=== PATIENT | male | born 1975 | race Caucasian/White ===

== ENCOUNTER 2018-10-20 22:07 | Emergency (ER) | payer OTHER ==
[2018-10-20 22:37] VITALS: PULSE 80
[2018-10-20 23:18] LABS: BASOPHIL % 1.1 % (0.0-0.4); Basophil (Absolute #) 0.09 (0-0.4); Eosinophil % 4.8 % (0.00-5.0); Eosinophil (Absolute #) 0.41 (0-0.5); Granulocyte Absolute (ANC) 4.23 (1.4-6.9); Granulocytes % 49.4 % (36.0-66.0); Hematocrit 48.1 % (42-50); Hemoglobin 16.9 gm/dl (12.5-18.0); Lymphocyte (Absolute #) 2.58 (1.0-4.6); Lymphocytes % 30.2 % (24.0-44.0); Mean Cell Volume 87.6 fl (78-100); Mean Corpuscular Hemoglobin 30.8 pg (26-32); Mean Corpuscular Hgb Concent. 35.1 g/dl (32-36); Mean Platelet Volume 10.7 fl (6-9.5); Monocyte (Absolute #) 1.24 (0.0-1.3); Monocytes % 14.5 % (0.0-12.0); Platelet Count 176 K/mm3 (150-450); Red Blood Count 5.49 M/mm3 (4.1-5.6); Red Cell Distribution Width 13.2 % (11.5-14.0); White Blood Count 8.6 K/mm3 (4.0-10.5)
[2018-10-20 23:35] LABS: ALBUMIN 4.3 g/dL (3.5-5.0); ALKALINE PHOSPHATASE 42 U/L (38-126); ANION GAP 15.8 MEQ/L (5-15); BLOOD UREA NITROGEN 15 mg/dL (9-20); CHLORIDE 106 mmol/L (98-107); Calcium 9.4 mg/dL (8.4-10.2); Carbon Dioxide 24 mmol/L (22-30); Creatinine 1 1.01 mg/dL (0.66-1.25); Glucose 90 mg/dL (74-106); Potassium 3.9 mmol/L (3.5-5.1); SGOT/AST 24 U/L (17-59); SGPT/ALT 27 U/L (0-50); SODIUM 142 mmol/L (137-145); Total Protein 7.3 g/dL (6.3-8.2)
[2018-10-21 01:27] VITALS: BP 101/71; O2SAT 94
[2018-10-21] MEDS ORDERED: ELIQUIS 2.5 MG TABLET PO STA (01:37)
--- NOTE | 2018-10-21 02:05 | ERPHSYRPT ---
- History of Present Illness Source: patient Exam Limitations: no limitations Patient Subjective Stated Complaint: mahesh states he was diagnosed by doppler on 09/14/18 with DVT then they put him on xarelto 30 mg 21 days then lowered to 20mg 2 weeks ago and it has since then started throbbing again liek it did when he first got it, he is also having some oni pain today Triage Nursing Assessment: mahesh alert nad orietnedx3, able to ambulate with crutches, skin warm dry and intact, left foot in extremely red and swollen as compared to right foot, pedal pulse present in right foot Physician History: Pt is a 42 y/o male that presented to the ER with complains of Left leg numbness and throbing, like he had when he was diagnosed with DVT in this leg. Pt was on Xarelto 30mg daily, and he was changed to 20mg daily, and developed escalation of his symptoms and chest pain. Pt denies SOB or cough. No N/V/D or abdominal pain. Method of Injury: other (During work) Occurred: yesterday Quality: throbbing Severity of Pain-Max: moderate Severity of Pain-Current: mild Lower Extremities Pain: leg: left (pain at the left calf and posterior knee.) Modifying Factors: Improves With: nothing Allergies/Adverse Reactions: No Known Drug Allergies Allergy (Unverified 05/24/14 13:33) Home Medications: No Home Meds [No Home Meds] 1 [facility] UD 11/23/13 [History] Hx Tetanus, Diphtheria Vaccination/Date Given: Yes Hx Influenza Vaccination/Date Given: No Hx Pneumococcal Vaccination/Date Given: No Immunizations Up to Date: Yes - Review of Systems Constitutional: No Fever, No Chills Eyes: No Symptoms Ears, Nose, & Throat: No Symptoms Respiratory: No Cough, No Dyspnea Cardiac: Chest Pain Abdominal/Gastrointestinal: No Abdominal Pain, No Nausea, No Vomiting, No Diarrhea Genitourinary Symptoms: No Dysuria Musculoskeletal: Joint Swelling (left ankle, and pain in the left calf ) Neurological: No Dizziness, No Focal Weakness, No Sensory Changes Psychological: No Symptoms Endocrine: No Symptoms - Past Medical History Pertinent Past Medical History: Yes Neurological History: Migraines ENT History: No Pertinent History Cardiac History: No Pertinent History Respiratory History: Asthma Endocrine Medical History: No Pertinent History Musculoskeletal History: No Pertinent History GI Medical History: Hernia History: No Pertinent History Psycho-Social History: No Pertinent History Male Reproductive Disorders: No Pertinent History 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 tonsils - Social History Smoking Status: Current every day smoker How long have you smoked: 20 YEARS Exposure to second hand smoke: Yes Alcohol Use: Socially Drug Use: none Patient Lives Alone: No Significant Family History: hypertension, stroke - Nursing Vital Signs Nursing Vital Signs: Initial Vital Signs Pulse Rate 80 10/20/18 22:08 Respiratory Rate 20 10/20/18 22:08 Blood Pressure 143/74 10/20/18 22:08 O2 Sat by Pulse Oximetry 96 10/20/18 22:08 Pain Scale Pain Intensity 8 - Physical Exam General Appearance: alert Eyes, Ears, Nose, Throat Exam: moist mucous membranes Neck Exam: non-tender, supple Cardiovascular/Respiratory Exam: chest non-tender, normal breath sounds, regular rate/rhythm, no respiratory distress Gastrointestinal/Abdominal Exam: non-tender, guarding Legs Exam: left leg: pain (gastroc) Ankle Exam: left ankle: pain (secondary to fracture) Neuro/Tendon Exam: normal sensation, normal motor functions Mental Status Exam: alert, oriented x 3, cooperative Skin Exam: normal color, warm, dry SpO2: 94 Oxygen Delivery: Room Air - Course Nursing assessment & vital signs reviewed: Yes EKG Interpreted by Me: Sinus Rhythm, NORMAL QRS - CT Exams Chest CT Interpretation: Negative (No PE) - Radiology Ultrasound Exam Left Venous Lower Extremity Ultrasound: discussed w/radiologist (DVT in the left LE from popliteal fossa and up to thigh) Ordered Tests: Active Orders 24 hr Category Date Time Status Filament Cutter STAT Care 10/20/18 23:03 Active Pulse Oximetry (ED) STAT Care 10/20/18 23:02 Active CHEST WITH CONTRAST [CT] Stat Exams 10/21/18 00:19 Taken CBC W DIFF Stat Lab 10/20/18 23:10 Completed CMP Stat Lab 10/20/18 23:10 Completed D-DIMER QUANTITATION Stat Lab 10/20/18 23:10 Completed TROPONIN Q3H Lab 10/20/18 23:10 Completed TROPONIN Q3H Lab 10/21/18 02:15 Ordered TROPONIN Q3H Lab 10/21/18 05:15 Ordered TROPONIN Q3H Lab 10/21/18 08:15 Ordered TROPONIN Q3H Lab 10/21/18 11:15 Ordered Medication Summary Discontinued Medications Generic Name Dose Route Start Last Admin Trade Name Freq PRN Reason Stop Dose Admin Apixaban 10 mg 10/21/18 01:37 10/21/18 01:45 Eliquis 2.5 Mg Tablet PO 10/21/18 01:38 10 mg ONCE STA Administration Lab/Rad Data: Laboratory Result Diagrams 10/20/18 23:10 10/20/18 23:10 Laboratory Results 10/20/18 10/20/18 10/20/18 Range/Units 23:10 23:10 23:10 WBC (4.0-10.5) K/mm3 RBC (4.1-5.6) M/mm3 Hgb (12.5-18.0) gm/dl Hct (42-50) % MCV (78-100) fl MCH (26-32) pg MCHC (32-36) g/dl RDW (11.5-14.0) % Plt Count (150-450) K/mm3 MPV (6-9.5) fl Gran % (36.0-66.0) % Eos # (Auto) (0-0.5) Absolute Lymphs (auto) (1.0-4.6) Absolute Monos (auto) (0.0-1.3) Lymphocytes % (24.0-44.0) % Monocytes % (0.0-12.0) % Eosinophils % (0.00-5.0) % Basophils % (0.0-0.4) % Absolute Granulocytes (1.4-6.9) Basophils # (0-0.4) D-Dimer 414 (215-500) ng/mL Sodium 142 (137-145) mmol/L Potassium 3.9 (3.5-5.1) mmol/L Chloride 106 (98-107) mmol/L Carbon Dioxide 24 (22-30) mmol/L Anion Gap 15.8 H (5-15) MEQ/L BUN 15 (9-20) mg/dL Creatinine 1.01 (0.66-1.25) mg/dL Estimated GFR > 60.0 ML/MIN Glucose 90 (74-106) mg/dL Calcium 9.4 (8.4-10.2) mg/dL Total Bilirubin 0.40 (0.2-1.3) mg/dL AST 24 (17-59) U/L ALT 27 (0-50) U/L Alkaline Phosphatase 42 (38-126) U/L Troponin I < 0.012 (0.000-0.034) ng/mL Serum Total Protein 7.3 (6.3-8.2) g/dL Albumin 4.3 (3.5-5.0) g/dL 10/20/18 Range/Units 23:10 WBC 8.6 (4.0-10.5) K/mm3 RBC 5.49 (4.1-5.6) M/mm3 Hgb 16.9 (12.5-18.0) gm/dl Hct 48.1 (42-50) % MCV 87.6 (78-100) fl MCH 30.8 (26-32) pg MCHC 35.1 (32-36) g/dl RDW 13.2 (11.5-14.0) % Plt Count 176 (150-450) K/mm3 MPV 10.7 H (6-9.5) fl Gran % 49.4 (36.0-66.0) % Eos # (Auto) 0.41 (0-0.5) Absolute Lymphs (auto) 2.58 (1.0-4.6) Absolute Monos (auto) 1.24 (0.0-1.3) Lymphocytes % 30.2 (24.0-44.0) % Monocytes % 14.5 H (0.0-12.0) % Eosinophils % 4.8 (0.00-5.0) % Basophils % 1.1 (0.0-0.4) % Absolute Granulocytes 4.23 (1.4-6.9) Basophils # 0.09 (0-0.4) D-Dimer (215-500) ng/mL Sodium (137-145) mmol/L Potassium (3.5-5.1) mmol/L Chloride (98-107) mmol/L Carbon Dioxide (22-30) mmol/L Anion Gap (5-15) MEQ/L BUN (9-20) mg/dL Creatinine (0.66-1.25) mg/dL Estimated GFR ML/MIN Glucose (74-106) mg/dL Calcium (8.4-10.2) mg/dL Total Bilirubin (0.2-1.3) mg/dL AST (17-59) U/L ALT (0-50) U/L Alkaline Phosphatase (38-126) U/L Troponin I (0.000-0.034) ng/mL Serum Total Protein (6.3-8.2) g/dL Albumin (3.5-5.0) g/dL - Progress Progress: unchanged Will see patient in: office Counseled pt/family regarding: lab results, diagnosis, need for follow-up - Departure Time of Disposition: 02:10 Departure Disposition: Home Clinical Impression: DVT (deep venous thrombosis) Condition: Stable Critical Care Time: No Referrals: GIANLUCA SKELTON [facility]DL[facility]PERATOR [Primary Care Provider] - Additional Instructions: Take Eliquis 10mg BID for 7 days, and then change to 5mg BID, till stopped by PCP/Ortho/Cardio Prescriptions: Apixaban [Eliquis] 5 mg PO UD 30 Days #1 tab.ds.pk
--- NOTE | 2018-10-21 09:15 | XRAY ---
Indication: Left leg throbbing pain. Current treatment for left leg DVT. Recent left ankle fracture. Two-dimensional sonogram and color Doppler imaging of the major venous vessels of the left leg was performed. Comparison: None There is nonoccluding thrombus in the popliteal and proximal posterior tibial veins. More distal posterior tibial vein at the level of the calf is occluded. No thrombus seen in the remaining common femoral, femoral, and greater saphenous veins. These veins demonstrate normal compressibility and normal venous waveforms. Impression: Popliteal and posterior tibial vein DVTs as detailed. Comment: Preliminary report was immediately given following the exam.
--- NOTE | 2018-10-21 09:16 | XRAY ---
Indication: Chest pain. Elevated d-dimer. Current treatment for left leg DVT. Multiple contiguous axial images obtained through the chest using 100 cc Isovue 370 contrast and PE protocol. Comparison: None. There is good opacification of the pulmonary arteries to include the lobar and segmental branches. Tiny nonoccluding pulmonary emboli seen at the origin of the lateral segmental branch (images 19-20, series 3) and tiny nonoccluding embolus in the posterior segmental branch of the right lower lobe (image 17, series 3). Heart is not enlarged. Aorta is normal in course and caliber. Multiple mediastinal and hilar calcified/noncalcified nodes, largest subcarinal measuring 1.3 x 4.6 cm. No pathologic axillary lymphadenopathy. Thyroid gland unremarkable. Examination of the lung parenchyma demonstrates mild bilateral dependent atelectasis. No suspicious pulmonary mass, infiltrate, or effusion. Bony thorax intact. Limited upper abdomen demonstrates 13.4 cm splenomegaly with a few calcified hepatic/splenic granulomas. Also indeterminate 7 mm round hypodense lesion in the inferior right lobe of liver. Impression: 1. Tiny nonoccluding right lower lobe pulmonary emboli as detailed. 2. Mediastinal and hilar calcified/noncalcified nodes presumed granulomatous. 3. Indeterminant 7 mm round hypodense lesion in the inferior right lobe the liver. Finding is new since CT abdomen/pelvis with contrast exam of November 16, 2012. Ultrasound or CT liver using hemangioma protocol may yield further information. 4. Incidental splenomegaly. Comment: Preliminary interpretation was made by [facility]. Pulmonary emboli and abdominal findings not reported. Case was discussed with Dr. Camacho in the ER at 0906 hrs. on October 21, 2018. CT DI 23.69
== END 2018-10-21 02:27 | disposition home or self-care (01) ==
LOC: ED 22:07
DX: I82.432 Acute embolism and thrombosis of left popliteal vein (principal); I82.442 Acute embolism and thrombosis of left tibial vein; M79.605 Pain in left leg; R07.9 Chest pain, unspecified; F17.200 Nicotine dependence, unspecified, uncomplicated; Z79.01 Long term (current) use of anticoagulants
CPT/HCPCS: 36000; 36415; 71260; 80053; 84484; 85025; 85379; 93041; 93971; 99284; A9270-GY